=== PATIENT | male | born 1950 | race Caucasian/White ===

== ENCOUNTER 2024-01-01 08:53 | Outpatient (CLI) | payer MEDICARE, BC ==
[2024-01-01] MEDS ORDERED: Iopamidol 370 76% 100 ML VIAL ONE (14:23)
== END 2024-01-01 08:54 | disposition home or self-care (01) ==
LOC: CSHCT 08:53
PROVIDERS: ATTEND Nurse Practitioner Family
DX: Z95.1 Presence of aortocoronary bypass graft (principal); I70.0 Atherosclerosis of aorta; I77.1 Stricture of artery; K76.0 Fatty (change of) liver, not elsewhere classified; K44.9 Diaphragmatic hernia without obstruction or gangrene
CPT/HCPCS: 74175; 82565; Q9967